=== PATIENT | male | born 1970 | race Caucasian/White ===

== ENCOUNTER 2021-04-07 08:58 | Inpatient (IN) | payer OTHER ==
[~2021-04-07] VITALS: Ht 175.3 cm; Wt 90.7 kg
[2021-04-07 10:04] LABS: BASOPHIL 0.2 % (0-2); BILIRUBIN NEGATIVE (NEGATIVE); BLOOD NEGATIVE Ery/uL (NEGATIVE); CLARITY CLEAR (CLEAR); COLOR YELLOW (YELLOW); EOSINOPHIL 0 % (0-5); GLUCOSE (U) NORMAL (NORMAL); HCT 45.4 % (42.0-52.0); HGB 14.7 g/dl (13.2-18.0); LEUKOCYTES NEGATIVE Leu/uL (NEGATIVE); LYMPHOCYTE 7.2 % (15-48); MCH 31.4 pg (25.0-31.0); MCHC 32.4 g/dL (32.0-36.0); MONOCYTE 7.5 % (0-12); MPV 10.6 fL (6.0-9.5); NEUTROPHIL 84.6 % (41-80); NITRITE NEGATIVE (NEGATIVE); NRBC 0; PLT 204 K/uL (150-400); PROTEIN NEGATIVE (NEGATIVE); RBC 4.68 M/uL (4.70-6.00); RDW 13.5 % (11.5-14.0); SPECIFIC GRAVITY 1.015 (1.001-1.030); WBC 17.9 K/uL (4.0-10.5); pH 6.5 (5.0-9.0)
[2021-04-07 10:33] LABS: BILIRUBIN - TOTAL 1.1 mg/dL (0.2-1.0); BUN/CREAT RATIO (CALC) 10.5 RATIO; CREATININE 1.05 mg/dL (0.67-1.17); POTASSIUM 4.4 mmol/L (3.5-5.1)
[2021-04-07 10:37] LABS: LACTIC ACID 1.3 mmol/L (0.4-1.9)
--- NOTE | 2021-04-07 16:29 | NUR ---
1615--PATIENT UP TO [facility] AFTER SURGERY. STABLE AT THIS TIME. MD ALBA NOTIFIED OF ELEVATED TEMP 102.1 TYLENOL 650MG TABS PO ORDERED NOX X 1, PRN BLOOD CULTURES X 2
--- NOTE | 2021-04-07 18:43 | NUR ---
PATIENT SPOT CHECKED ON ROOM AIR, 93% UNTIL FELL ASLEEP DESAT TO 88%. O2 2L PER NC PLACED BACK ON PATIENT
[2021-04-08 18:40] LABS: BASOPHIL 0.3 % (0-2); EOSINOPHIL 0.4 % (0-5); HCT 36.8 % (42.0-52.0); HGB 11.6 g/dl (13.2-18.0); LYMPHOCYTE 13.2 % (15-48); MCH 31.4 pg (25.0-31.0); MCHC 31.5 g/dL (32.0-36.0); MCV 99.7 fL (78.0-100.0); MONOCYTE 4.8 % (0-12); MPV 10.4 fL (6.0-9.5); NEUTROPHIL 80.9 % (41-80); NRBC 0; PLT 155 K/uL (150-400); RBC 3.69 M/uL (4.70-6.00); RDW 13.7 % (11.5-14.0); WBC 11.2 K/uL (4.0-10.5)
[2021-04-09] MEDS ORDERED: LACTINEX1 EACH PO (13:41)
[2021-04-09] MEDS ORDERED: PERCOCET 5-3251 EACH PO (13:41)
[2021-04-09] MEDS ORDERED: AUGMENTIN 875-1 EACH PO (13:41)
[2021-04-09] MEDS ORDERED: METRONIDAZOLE500 MG PO (13:41)
== END 2021-04-09 14:45 | disposition home or self-care (01) | DRG 343 ==
LOC: FER 08:58 → FMS 15:18
PROVIDERS: Emergency Medicine; ADMIT Surgery
PROC: 0DTJ4ZZ Resection of Appendix, Percutaneous Endoscopic Approach (ICD-10-PCS; principal; 2021-04-07 13:30)
DX: K35.891 Other acute appendicitis without perforation, with gangrene (principal); Z20.822 Contact with and (suspected) exposure to COVID-19; Z98.890 Other specified postprocedural states
CPT/HCPCS: 36415; 80053; 81003; 83605; 83690; 85025; 87040; 87070; 87075; 87077; 87186; 87205; J1170; J1885; J2250; J2270; J2405; J2543; J2704; J2710; J3010; J7030; J7120; U0002